=== PATIENT | female | born 1975 | race Caucasian/White ===

== ENCOUNTER 2019-01-03 08:43 | Day surgery (SDC) | payer BC ==
[~2019-01-03 08:43] MED LIST: Lactated Ringers 1,000 ML IV SCH; Lidocaine 1%/Sod Bicarbonate in NS 8.4% 1 ML Syringe IDERM PRN; Sodium Chloride 0.9% 10 ML Syringe FLUSH PRN
[2019-01-03] MEDS ORDERED: Bupivacaine 0.5% 30 ML SDV ONE (09:39)
[2019-01-03] MEDS ORDERED: Lidocaine 1% with EPINEPHrine 1:100,000 20 ML MDV ONE ×2 (09:39→09:49)
[2019-01-03] MEDS ORDERED: Bupivacaine 0.5%/EPINEPHrine 1:200,000 50 ML MDV ONE (09:39)
[2019-01-03] MEDS ORDERED: Propofol 200 MG/20 ML SDV ONE ×2 (09:59→11:05)
[2019-01-03] MEDS ORDERED: Ondansetron 4 MG/2 ML SDV ONE ×2 (09:59→10:00)
[2019-01-03] MEDS ORDERED: Lidocaine 1% 4 ML ONE (09:59)
[2019-01-03] MEDS ORDERED: Rocuronium 50 MG/5 ML Vial ONE (09:59)
[2019-01-03] MEDS ORDERED: fentaNYL 250 MCG/5 ML SDV ONE (10:00)
[2019-01-03] MEDS ORDERED: Midazolam 1 MG/ML 2 ML SDV ONE (10:00)
[2019-01-03] MEDS ORDERED: Sodium Chloride 0.9% 1,000 ML IV SCH (11:00)
[2019-01-03] MEDS ORDERED: Metoclopramide 10 MG/2 ML SDV ONE (11:08)
[2019-01-03] MEDS ORDERED: Ketamine 500 mg/10 ML MDV ONE (11:21)
[2019-01-03] MEDS ORDERED: ceFAZolin 1 GM Vial ONE ×2 (11:32→11:39)
[2019-01-03] MEDS ORDERED: Phenylephrine/Normal Saline 100 MCG/ML 10 ML Syringe ONE (12:19)
--- NOTE | 2019-01-03 12:35 | MY ---
Needle localization of right breast stereotactic marking clip (an area of spiculation seen on mammogram) Procedure was explained to the patient. Area around stereotactic marking clip was localized tomographically. Patient then prepped in the usual fashion. Skin and deep tissues anesthetized with 1% lidocaine. Needle was placed and confirmed in position. Spring-hook wire then placed. Radiographic study with spring-hook wire in place shows wire to be posterior to the stereotactic marking clip and centered within slight area of architectural distortion. Impression: 1. Satisfactory position of needle localization wire with spring-hook end of the wire being within area of spiculation within the right breast and located slightly posterior to the stereotactic marking clip. Diagnostic code #2 Note: At time of dictation no specimen radiograph is available, if this becomes available an addendum will be issued.
--- NOTE | 2019-01-03 12:44 | MY ---
Right breast specimen: Single specimen radiograph was obtained. Specimen radiograph shows stereotactic marking clip as well as end of spring-hook wire in place. Slight area of architectural distortion is seen within the specimen. Impression: 1. Findings felt compatible with successful biopsy of area of interest. Diagnostic code #2
--- NOTE | 2019-01-03 12:49 | PCM48HPAN ---
Post Anesthesia Note - EVALUATION WITHIN 48HRS OF ANESTHETIC Vital Signs in Normal Range: Yes Patient Participated in Evaluation: Yes Respiratory Function Stable: Yes Airway Patent: Yes Cardiovascular Function Stable: Yes Hydration Status Stable: Yes Pain Control Satisfactory: Yes Nausea and Vomiting Control Satisfactory: Yes Mental Status Recovered: Yes Pulse Rate: 95 SaO2: 99 Resp Rate: 14 Temperature: 37.0 C Blood Pressure: 131/60
--- NOTE | 2019-01-03 12:49 | PCM.OPNOTE ---
- General Post-Op/Procedure Note Date of Surgery/Procedure: 01/03/19 Operative Procedure(s): right breast wire localized lumpectomy Findings: Wire in place Pre Op Diagnosis: Suspicious lesion and right breast on mammography Post-Op Diagnosis: Same Primary Surgeon: Nessa Rodriguez Anesthesia Provider: Sravanthi Reyes Pathology: 1. Right breast lumpectomy 2. Deep margin Fluid Replacement, Intraop: 800 EBL in mLs: 5 Complications: none apparent Condition: Good
--- NOTE | 2019-01-03 12:55 | PCM.PREANE ---
Preanesthetic Assessment - Anesthesia/Transfusion/Family Hx Anesthesia History: Prior Anesthesia Without Reaction Family History of Anesthesia Reaction: No - Review of Systems General: No Symptoms Pulmonary: No Symptoms (Sleep Apnea, does not use CPAP. ) Cardiovascular: No Symptoms Gastrointestinal: Other (Occasional heart burn) Neurological: No Symptoms Other: Reports: Diabetes (Type I with Insulin Pump. Preoperatiave consultation with endocrinology for management. ), Thyroid Problems - Physical Assessment NPO Status Date: 01/02/19 NPO Status Time: 23:00 Pulse: 95 O2 Sat by Pulse Oximetry: 99 Respiratory Rate: 14 Blood Pressure: 131/60 Temperature: 37.0 C Vital Signs: Last Vital Signs Temp 37.0 C 01/03/19 12:48 Pulse 95 01/03/19 12:48 Resp 14 01/03/19 12:48 BP 131/60 01/03/19 12:48 Pulse Ox 99 01/03/19 12:48 Height: 1.5 m Weight: 89.358 kg ASA Class: 3 Mental Status: Alert & Oriented x3 Airway Class: Mallampati = 2 Dentition: Reports: Normal Dentition Thyro-Mental Finger Breadths: 2 Mouth Opening Finger Breadths: 3 ROM/Head Extension: Full Lungs: Clear to Auscultation, Normal Respiratory Effort Cardiovascular: Regular Rate, Regular Rhythm - Lab Values: Laboratory Last Values Sodium 138 mEq/L (136-145) 01/03/19 10:35 Potassium 4.7 mEq/L (3.5-5.1) 01/03/19 10:35 Chloride 103 mEq/L (98-107) 01/03/19 10:35 Carbon Dioxide 21 mEq/L (21-32) 01/03/19 10:35 Anion Gap 18.7 (5-15) H 01/03/19 10:35 BUN 53 mg/dL (7-18) H 01/03/19 10:35 Creatinine 2.9 mg/dL (0.55-1.02) H 01/03/19 10:35 Est Cr Clr Drug Dosing TNP 01/03/19 10:35 Estimated GFR (MDRD) 18 mL/min (>60) 01/03/19 10:35 BUN/Creatinine Ratio 18.3 (14-18) H 01/03/19 10:35 Glucose 138 mg/dL (74-106) H 01/03/19 10:35 Calcium 9.0 mg/dL (8.5-10.1) 01/03/19 10:35 Urine HCG, Qual Negative (NEGATIVE) 01/03/19 09:32 - Allergies Allergies/Adverse Reactions: Allergies Allergy/AdvReac Type Severity Reaction Status Date / Time No Known Allergies Allergy Verified 01/02/19 13:43 - Anesthesia Plan Pre-Op Medication Ordered: Anxiolytic, Other (0.9NS for IV fluid) - Acknowledgements Anesthesia Type Planned: MAC Pt an Appropriate Candidate for the Planned Anesthesia: Yes Alternatives and Risks of Anesthesia Discussed w Pt/Guardian: Yes Pt/Guardian Understands and Agrees with Anesthesia Plan: Yes PreAnesthesia Questionnaire HEENT History: Reports: None Cardiovascular History: Reports: High Cholesterol, Hypertension Respiratory History: Reports: Sleep Apnea Gastrointestinal History: Reports: Other (See Below) Other Gastrointestinal History: GASTROPARESIS Genitourinary History: Reports: Renal Disease, Other (See Below) Other Genitourinary History: CKD IV SURGERY NURSE History: Reports: None Musculoskeletal History: Reports: None Neurological History: Reports: None Psychiatric History: Reports: None Endocrine/Metabolic History: Reports: Diabetes, Type I, Obesity/BMI 30+ Hematologic History: Reports: None Immunologic History: Reports: None Oncologic (Cancer) History: Reports: None Dermatologic History: Reports: None - Past Surgical History Head Surgeries/Procedures: Reports: None HEENT Surgical History: Reports: None Cardiovascular Surgical History: Reports: None Respiratory Surgical History: Reports: None GI Surgical History: Reports: None Female Surgical History: Reports: Section Male Surgical History: Reports: None Endocrine Surgical History: Reports: None Neurological Surgical History: Reports: None Musculoskeletal Surgical History: Reports: None Oncologic Surgical History: Reports: None Dermatological Surgical History: Reports: None - SUBSTANCE USE Smoking Status *Q: Never Smoker Recreational Drug Use History: No - HOME MEDS Home Medications: Home Meds Insulin Aspart [NovoLOG] 1 dose SQ ASDIRECTED 01/02/19 [History] Levothyroxine [Synthroid] 100 mcg PO DAILY 01/02/19 [History] Losartan Potassium 6.25 mg PO DAILY 01/02/19 [History] NIFEdipine [Nifedipine ER] 120 mg PO DAILY 01/02/19 [History] Simvastatin 30 mg PO BEDTIME 01/02/19 [History] - CURRENT (IN HOUSE) MEDS Current Meds: Current Medications Sodium Chloride (Normal Saline) 1,000 mls @ 125 mls/hr IV ASDIRECTED [facility] Stop: 01/03/19 23:00 Last Admin: 01/03/19 10:40 Dose: 125 mls/hr Lidocaine/Sodium Bicarbonate (Buffered Lidocaine 1% In Ns 8.4%) 0.25 ml IDERM ONETIME PRN PRN Reason: Prior to IV Start Stop: 01/03/19 18:00 Last Admin: 01/03/19 10:35 Dose: 0.25 ml Sodium Chloride (Saline Flush) 10 ml FLUSH ASDIRECTED PRN PRN Reason: Keep Vein Open Stop: 01/03/19 18:00 Discontinued Medications Bupivacaine HCl (Marcaine 0.5%) Confirm Administered Dose 30 ml .ROUTE .STK-MED ONE Stop: 01/03/19 09:40 Bupivacaine HCl/Epinephrine Bitart (Marcaine 0.5%/Epinephrine 1:200,000) Confirm Administered Dose 50 ml .ROUTE .STK-MED ONE Stop: 01/03/19 09:40 Last Admin: 01/03/19 11:36 Dose: 20 ml Cefazolin Sodium (Ancef) Confirm Administered Dose 2 gm .ROUTE .STK-MED ONE Stop: 01/03/19 11:33 Cefazolin Sodium (Ancef) Confirm Administered Dose 2 gm .ROUTE .STK-MED ONE Stop: 01/03/19 11:40 Fentanyl (Sublimaze) Confirm Administered Dose 250 mcg .ROUTE .STK-MED ONE Stop: 01/03/19 10:01 Lactated Ringer's (Ringers, Lactated) 1,000 mls @ 125 mls/hr IV ASDIRECTED [facility] Stop: 01/03/19 23:00 Lidocaine HCl (Xylocaine-Mpf 1%) Confirm Administered Dose 4 mls @ as directed .ROUTE .STK-MED ONE Stop: 01/03/19 10:00 Ketamine HCl (Ketalar) Confirm Administered Dose 500 mg .ROUTE .STK-MED ONE Stop: 01/03/19 11:22 Lidocaine HCl (Xylocaine-Mpf 1%) 10 ml INJECT ONETIME ONE Stop: 01/03/19 09:36 Last Admin: 01/03/19 10:45 Dose: 10 ml Lidocaine/Epinephrine (Xylocaine 1% With Epinephrine 1:100,000) Confirm Administered Dose 20 ml .ROUTE .STK-MED ONE Stop: 01/03/19 09:40 Last Admin: 01/03/19 11:36 Dose: 20 ml Lidocaine/Epinephrine (Xylocaine 1% With Epinephrine 1:100,000) Confirm Administered Dose 20 ml .ROUTE .[facility]-MED ONE Stop: 01/03/19 09:50 Metoclopramide HCl (Reglan) Confirm Administered Dose 10 mg .ROUTE .[facility]-MED ONE Stop: 01/03/19 11:09 Midazolam HCl (Versed 1 Mg/Ml) Confirm Administered Dose 2 mg .ROUTE .[facility]-MED ONE Stop: 01/03/19 10:01 Ondansetron HCl (Zofran) Confirm Administered Dose 4 mg .ROUTE .[facility] ONE Stop: 01/03/19 10:00 Ondansetron HCl (Zofran) Confirm Administered Dose 4 mg .ROUTE .[facility].RU-MED ONE Stop: 01/03/19 10:01 Phenylephrine HCl (Phenylephrine In Ns 100 Mcg/Ml) Confirm Administered Dose 1 mg .ROUTE .[facility]-MED ONE Stop: 01/03/19 12:20 Propofol (Diprivan 20 Ml) Confirm Administered Dose 400 mg .ROUTE .[facility]-MED ONE Stop: 01/03/19 10:00 Propofol (Diprivan 20 Ml) Confirm Administered Dose 400 mg .ROUTE .[facility]-MED ONE Stop: 01/03/19 11:06 Rocuronium [place] (Zemuron) Confirm Administered Dose 50 mg .ROUTE .[facility].RU-MED ONE Stop: 01/03/19 10:00
--- NOTE | 2019-01-03 12:59 | PCM.PRNOTE ---
- Free Text/Narrative Note: DATE OF PROCEDURE: January 03, 2019 PROCEDURE: Right breast wire localized lumpectomy PREOP DX: Right breast suspicious lesion on imaging POSTOP DX: same SURGEON: Nessa Rodriguez MD [employer] INSTRUCTIONAL ASSISTANT: Sravanthi Reyes CRNA ANESTHETIC: MAC EBL: 5 mL IVF: 800 mL UOP: 0 mL FINDINGS: PATHOLOGY: INDICATION: The patient is a 43-year old lady who initially presented with a mammogram abnormality in the right breast. She was undergoing screening for placement on the transplant list. Subsequent workup included a core needle biopsy, which demonstrated no substantial finding. However, due to her desire for possible kidney and pancreas transplant, surgical excision was recommended. The risks, benefits, alternative and rationale of surgery explained including the risk of not operating, bleeding, infection, seroma or hematoma. Informed consent was obtained for a right breast needle localized lumpectomy. DESCRIPTION OF THE PROCEDURE: The patient was brought to the operating room and placed in supine position on the operating table. MAC anesthesia was induced without difficulty. Preoperative antibiotics were administered according to SCIP guidelines. The right chest was prepped and draped in a sterile fashion. A surgical timeout was performed. The incision was marked along the inferior medial border of the right areolar complex. We began by injecting local anesthetic into the area of the incision. An incision was made and flaps were raised orienting the incision to the area of the localization wire. Once the wire was located, it was brought into the surgical field in through the incision. The specimen was dissected from the surrounding tissues using the Bovie device. The specimen was oriented using suture and sent to mammography for analysis of clip and wire placement in the specimen. The remaining cavity was inspected to ensure hemostasis and no additional abnormalities. Hemostasis was achieved using the Bovie device. Cavity was irrigated using sterile water. Once mammography confirmed placement of the clip and wire in the specimen with appropriate orientation, we took additional deep margin that was sent to pathology. The subcutaneous tissue was re-approximated with interrupted 3-0 vicryl sutures in the cavity and in the dermal tissue. The skin was closed with 4-0 Monocryl sub-cuticular running suture. Dermabond surgical glue was used to cover the skin. A dry dressing and surgical bra was placed. All instrument and sponge counts were correct. The patient was successfully awakened from anesthesia and transferred to the PACU in stable condition. Nessa Rodriguez MD General Surgery
== END 2019-01-03 14:03 | disposition home or self-care (01) ==
LOC: JD.SDS 08:43
PROVIDERS: ATTEND Surgery
DX: N60.11 Diffuse cystic mastopathy of right breast (principal); I12.9 Hypertensive chronic kidney disease with stage 1 through stage 4 chronic kidney disease, or unspecified chronic kidney disease; E10.22 Type 1 diabetes mellitus with diabetic chronic kidney disease; N18.4 Chronic kidney disease, stage 4 (severe); E10.43 Type 1 diabetes mellitus with diabetic autonomic (poly)neuropathy; K31.84 Gastroparesis; E78.00 Pure hypercholesterolemia, unspecified; E03.9 Hypothyroidism, unspecified; G47.30 Sleep apnea, unspecified; Z79.899 Other long term (current) drug therapy
CPT/HCPCS: 19281; 19283; 19301; 36415; 76098; 80048; 81025; 82962; 93005; J0690; J2001; J2250; J2370; J2405; J2704; J2765; J3010; J3490; J7040; 00400